=== PATIENT | female | born 1990 | race Caucasian/White ===

== ENCOUNTER 2018-02-27 11:57 | Emergency (ER) | payer MEDICAID, OTHER, SELFPAY ==
[~2018-02-27] VITALS: Ht 172.7 cm; Wt 62.1 kg
[2018-02-27 12:01] VITALS: BP 105/67
== END 2018-02-27 13:18 | disposition home or self-care (01) ==
LOC: ED 12:55
DX: S92.002A Unspecified fracture of left calcaneus, initial encounter for closed fracture (principal); W19.XXXA Unspecified fall, initial encounter; Y93.89 Activity, other specified; Y92.328 Other athletic field as the place of occurrence of the external cause; Y99.8 Other external cause status
CPT/HCPCS: 99283

== ENCOUNTER 2018-07-06 14:16 | Emergency (ER) | payer MEDICAID ==
[~2018-07-06] VITALS: Ht 167.6 cm; Wt 60.1 kg
[2018-07-06] MEDS ORDERED: SODIUM CHLORIDE FLUSH 10ML SYR IVF ONE ×2 (14:30→15:00)
[2018-07-06] MEDS ORDERED: SODIUM CHLORIDE 0.9% 1,000 ML IV ONE (14:36)
[2018-07-06 14:46] LABS: MEAN CORPUSCULAR HEMOGLOBIN 34.9 pg (27.0-34.8); MEAN CORPUSCULAR HGB CONC 33.7 g/dL (32.4-35.8); MEAN CORPUSCULAR VOLUME 103.6 fL (80-100); MEAN PLATELET VOLUME 7.6 fL (7.4-10.4); PLATELET COUNT 354 x10^3/uL (130-400); RED BLOOD COUNT 3.81 x10^6/uL (3.82-5.3); RED CELL DISTRIBUTION WIDTH 14.7 % (9.6-15.2)
[2018-07-06 14:57] LABS: ALBUMIN 3.8 g/dL (3.4-5.0); ANION GAP 9 mmol/L (5-15); CALCIUM 8.2 mg/dL (8.5-10.1); CHLORIDE 110 mmol/L (98-107)
[2018-07-06 15:00] LABS: ALANINE AMINOTRANSFERASE 67 U/L (12-78); ALKALINE PHOSPHATASE 81 U/L (45-117); BILIRUBIN,TOTAL 0.2 mg/dL (0.2-1.0); CREATININE 0.69 mg/dL (0.55-1.02); TOTAL PROTEIN 8.1 g/dL (6.4-8.2)
[2018-07-06] MEDS ORDERED: SODIUM CHLORIDE 0.9% 1,000ML IVBOLUS ONE (15:00)
[2018-07-06 15:16] LABS: BASOPHILS # (AUTO) 0.13 x10^3/uL (0-0.1); BASOPHILS % (AUTO) 2 % (0-1); EOSINOPHILS # (AUTO) 0.06 x10^3/uL (0-0.4); EOSINOPHILS % (AUTO) 1 % (1-7); LYMPHOCYTES # (AUTO) 3.56 x10^3/uL (1-3.4); LYMPHOCYTES % (AUTO) 56 % (22-44); MD SCAN; MONOCYTES # (AUTO) 0.27 x10^3/uL (0.2-0.8); MONOCYTES % (AUTO) 4 % (2-9); NEUTROPHILS # (AUTO) 2.34 x10^3/uL (1.8-6.8); NEUTROPHILS % (AUTO) 37 % (42-75)
[2018-07-06 15:37] LABS: MICROSCOPIC NOT IND
[2018-07-06 15:41] LABS: CULTURE INDICATED? NO
[2018-07-06 15:42] LABS: HCG UR SG 1.021 (1.003-1.030)
[2018-07-06 16:40] VITALS: BP 100/66
== END 2018-07-06 16:55 | disposition home or self-care (01) ==
LOC: ED 16:23
DX: R55 Syncope and collapse (principal); R51 Headache
CPT/HCPCS: 36415; 70450; 80053; 81003; 81025; 85025; 93005; 96360; 99285; J7030

== ENCOUNTER 2019-08-29 14:55 | Emergency (ER) | payer BC ==
[~2019-08-29] VITALS: Ht 172.7 cm; Wt 62.1 kg
[~2019-08-29 14:55] MED LIST: MULTIVITAMIN
--- NOTE | 2019-08-29 15:36 | NUR ---
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
--- NOTE | 2019-08-29 15:44 | NUR ---
pt to ed after being bucked off a horse on friday. pt reports pain to mid-lower back and rib pain while taking a deep breath. pt connected to monitors. vss. no needs expressed. call light within reach. Dr. Levi to bs for assessment. awaiting orders.
[2019-08-29] MEDS ORDERED: HYDROmorphone 1 MG/ML, 1ML INJ ONE (15:48)
[2019-08-29 15:49] VITALS: BP 108/71
--- NOTE | 2019-08-29 15:56 | NUR ---
pt resting in room with family at bs. vss. pt medicated per mar for pain. pt educated on side effects and agreeable to mediation. no needs expressed at this time. call light within reach. awaiting ct.
[2019-08-29] MEDS ORDERED: HYDROmorphone 1 MG/ML, 1ML INJ IM ONE (16:00)
--- NOTE | 2019-08-29 16:22 | NUR ---
pt to ct.
--- NOTE | 2019-08-29 16:48 | NUR ---
pt back from ct.
--- NOTE | 2019-08-29 17:32 | NUR ---
TASK RN: Patient given discharge instructions and they have confirmed that they understand the instructions. Patient ambulatory with steady gait. Pt left with Rx, d/c paperwork, referral information, and all personal belongings. Pt encouraged to follow up with referral information and to return to ED if symptoms worsen or change. Pt stated verbal understanding.
== END 2019-08-29 17:34 | disposition home or self-care (01) ==
LOC: ED 16:02
DX: S22.080A Wedge compression fracture of T11-T12 vertebra, initial encounter for closed fracture (principal); X58.XXXA Exposure to other specified factors, initial encounter; Y93.89 Activity, other specified; Y92.89 Other specified places as the place of occurrence of the external cause; Y99.8 Other external cause status
CPT/HCPCS: 71250; 72131; 96372; 99284; J1170

== ENCOUNTER → 2019-10-12 | Outpatient (CLI) | payer BC | END | disposition home or self-care (01) | LOC: CFH 13:13 | PROVIDERS: ATTEND Nurse Practitioner Critical Care Medicine | DX: S22.000A Wedge compression fracture of unspecified thoracic vertebra, initial encounter for closed fracture (principal); X58.XXXA Exposure to other specified factors, initial encounter; Y93.89 Activity, other specified; Y92.89 Other specified places as the place of occurrence of the external cause; Y99.8 Other external cause status | CPT/HCPCS: 72100 ==

== ENCOUNTER 2020-01-27 11:37 | Emergency (ER) | payer BC, MEDICAID ==
[~2020-01-27] VITALS: Ht 170.2 cm; Wt 55.9 kg
[2020-01-27] MEDS ORDERED: FAMOTIDINE 20 MG/2 ML ONE (12:13)
[2020-01-27] MEDS ORDERED: ONDANSETRON 2MG/ML, 2ML ONE (12:13)
--- NOTE | 2020-01-27 12:21 | NUR ---
PT C/O N/V X 3 DAYS. DENIES DIARRHEA AND ABD PAIN. SHE THROWS UP WITHIN 20 MINUTES OF EATING OR DRINKING. PT CONNTECTED TO MONITORING. PIV PLACED AND LABS DRAWN BY TASK RN.
[2020-01-27] MEDS ORDERED: SODIUM CHLORIDE 0.9% 1,000ML IVBOLUS ONE (12:30)
[2020-01-27] MEDS ORDERED: SODIUM CHLORIDE FLUSH 10ML SYR IVF ONE (12:30)
[2020-01-27] MEDS ORDERED: ONDANSETRON 2MG/ML, 2ML IVPush ONE (12:30)
[2020-01-27] MEDS ORDERED: FAMOTIDINE 20 MG/2 ML IV ONE (12:30)
--- NOTE | 2020-01-27 12:30 | NUR ---
MEDS ADMIN PER NOV. PT AMBULATED TO RESTROOM WITH STEADY GAIT TO PROVIDE URINE SAMPLE. UA COLLECTED AND SENT TO LAB.
[2020-01-27 12:37] LABS: MEAN CORPUSCULAR HEMOGLOBIN 34.5 pg (27.0-34.8); MEAN CORPUSCULAR HGB CONC 33.7 g/dL (32.4-35.8); MEAN CORPUSCULAR VOLUME 102.5 fL (80-100); MEAN PLATELET VOLUME 7.8 fL (7.4-10.4); PLATELET COUNT 249 x10^3/uL (130-400); RED BLOOD COUNT 4.13 x10^6/uL (3.82-5.3)
[2020-01-27 12:41] LABS: ALBUMIN 3.8 g/dL (3.4-5.0); ANION GAP 17 mmol/L (5-15); CALCIUM 8.6 mg/dL (8.5-10.1); CHLORIDE 98 mmol/L (98-107)
[2020-01-27 12:47] LABS: ALKALINE PHOSPHATASE 119 U/L (45-117); BILIRUBIN,TOTAL 1.8 mg/dL (0.2-1.0); CREATININE 0.83 mg/dL (0.55-1.02)
[2020-01-27 13:03] LABS: BASOPHILS # (AUTO) 0.07 x10^3/uL (0-0.1); BASOPHILS % (AUTO) 2 % (0-1); EOSINOPHILS # (AUTO) 0.01 x10^3/uL (0-0.4); EOSINOPHILS % (AUTO) 0 % (1-7); LYMPHOCYTES # (AUTO) 0.68 x10^3/uL (1-3.4); LYMPHOCYTES % (AUTO) 19 % (22-44); MD MORPH REVIEW ONLY; MONOCYTES # (AUTO) 0.16 x10^3/uL (0.2-0.8); MONOCYTES % (AUTO) 5 % (2-9); NEUTROPHILS # (AUTO) 2.66 x10^3/uL (1.8-6.8); NEUTROPHILS % (AUTO) 74 % (42-75)
[2020-01-27 13:04] LABS: ALANINE AMINOTRANSFERASE 235 U/L (12-78)
[2020-01-27 13:06] LABS: <PLATELET ESTIMATE> ADEQUATE; <PLT MORPHOLOGY> NORMAL PLT MORPH; STOMATOCYTES 1+
[2020-01-27 13:21] LABS: MICROSCOPIC INDICATED
[2020-01-27 13:42] LABS: CULTURE INDICATED? YES
--- NOTE | 2020-01-27 13:44 | NUR ---
ALL RESULTS ARE BACK AT THIS TIME. CHART UP FOR RECHECK.
--- NOTE | 2020-01-27 13:46 | NUR ---
PT RESTING COMFORTABLY ON GURNEY. PT STATES SHE FEELS BETTER AFTER FLUIDS AND MEDS.
--- NOTE | 2020-01-27 13:59 | NUR ---
NEW ORDER RECEIVED FOR ABD CT WITH CONTRAST. PT GOING TO CT.
[2020-01-27] MEDS ORDERED: OMNIPAQUE 350 MG/ML, 75ML BOTTLE ONE (14:16)
--- NOTE | 2020-01-27 14:24 | NUR ---
ALL RESULTS ARE BACK AT THIS TIME. CHART UP FOR RECHECK.
[2020-01-27 15:34] VITALS: BP 110/72
== END 2020-01-27 15:35 | disposition home or self-care (01) ==
LOC: ED 12:46
DX: K70.10 Alcoholic hepatitis without ascites (principal); R11.2 Nausea with vomiting, unspecified; R94.5 Abnormal results of liver function studies; R10.84 Generalized abdominal pain; R51 Headache
CPT/HCPCS: 36415; 74177; 80053; 81001; 83690; 84703; 85025; 87086; 96361; 96374; 96375; 99285; J2405; J3490; J7030; Q9967

== ENCOUNTER 2020-05-10 09:38 | Emergency (ER) | payer MEDICAID ==
[~2020-05-10] VITALS: Ht 172.7 cm; Wt 59.6 kg
[2020-05-10 09:46] VITALS: BP 109/74
[2020-05-10] MEDS ORDERED: KETOROLAC 30 MG/1 ML ONE (10:08)
[2020-05-10] MEDS ORDERED: KETOROLAC 30 MG/1 ML IM ONE (10:30)
== END 2020-05-10 11:54 | disposition home or self-care (01) ==
LOC: ED 11:22
DX: S42.032A Displaced fracture of lateral end of left clavicle, initial encounter for closed fracture (principal); W19.XXXA Unspecified fall, initial encounter; Y93.89 Activity, other specified; Y92.098 Other place in other non-institutional residence as the place of occurrence of the external cause; Y99.8 Other external cause status
CPT/HCPCS: 73020; 73030; 73080; 96372; 99284; J1885

== ENCOUNTER 2021-03-05 11:45 | Emergency (ER) | payer MEDICAID ==
[~2021-03-05] VITALS: Ht 172.7 cm; Wt 59.5 kg
[2021-03-05 12:17] VITALS: BP 119/70
--- NOTE | 2021-03-05 13:35 | NUR ---
CCTV TECHNICIAN: PT TO ROOM FROM LOBBY
== END 2021-03-05 15:23 | disposition home or self-care (01) ==
LOC: ED 12:15
DX: S40.011A Contusion of right shoulder, initial encounter (principal); S90.31XA Contusion of right foot, initial encounter; S09.90XA Unspecified injury of head, initial encounter; M54.2 Cervicalgia; F17.210 Nicotine dependence, cigarettes, uncomplicated; Y00.XXXA Assault by blunt object, initial encounter; Y93.89 Activity, other specified; Y92.410 Unspecified street and highway as the place of occurrence of the external cause; Y99.8 Other external cause status
CPT/HCPCS: 70450; 72125; 99285